=== PATIENT | female | born 2005 | race Two or more races ===

== ENCOUNTER 2025-03-02 12:18 | Outpatient (CLI) | payer OTHER | END 2025-03-02 12:27 | disposition home or self-care (01) | LOC: SONOGRAMA 12:18 | PROVIDERS: ATTEND Surgery | DX: D24.1 Benign neoplasm of right breast (principal); N60.11 Diffuse cystic mastopathy of right breast; N60.12 Diffuse cystic mastopathy of left breast ==

== ENCOUNTER 2025-03-16 05:27 | Day surgery (SDC) | payer OTHER ==
[2025-03-16] MEDS ORDERED: CEFAZOLIN SODIUM 1,000 MG VIAL ONE (07:05)
[2025-03-16] MEDS ORDERED: CHLORHEXIDINE GLUCONATE 120 ML BOTTLE TOP ONE (07:12)
== END 2025-03-16 15:20 | disposition home or self-care (01) ==
LOC: CIR.AMB 05:27
PROVIDERS: ATTEND Surgery
DX: D24.2 Benign neoplasm of left breast (principal); D48.62 Neoplasm of uncertain behavior of left breast

== ENCOUNTER 2025-03-27 14:43 | Emergency (ER) | payer OTHER ==
[~2025-03-27] VITALS: Ht 167.6 cm; Wt 54.4 kg
[2025-03-27] MEDS ORDERED: KETOROLAC TROMETHAMINE 60 MG VIAL IM ONE (15:16)
[2025-03-27] MEDS ORDERED: KETOROLAC TROMETHAMINE 60 MG VIAL IM STA (15:24)
[2025-03-27] MEDS ORDERED: 0.9 % SODIUM CHLORIDE 1,000 ML IV STA (15:24)
[2025-03-27 16:07] LABS: BASO % 0.8 % (0.1-1.2); EOS # 0.02 (0.04-0.54); EOS % 0.5 % (0.7-7.0); HEMATOCRIT 36.9 % (34.1-44.9); HEMOGLOBIN 12.8 g/dL (11.2-15.7); LYMPH # 1.33 (1.18-3.74); LYMPH % 34.7 % (19.3-53.1); MEAN CORPUSCULAR HEMOGLOBIN 28.1 pg (25.6-32.2); MONO # 0.31 (0.24-0.82); MONO % 8.1 % (4.7-12.5); NEUT # 2.13 (1.56-6.13); NEUT % 55.6 % (34.0-71.1); PLATELET COUNT 180 K/uL (163-369); RED BLOOD COUNT 4.55 M/uL (3.93-5.22); RED CELL DISTRIBUTION WIDTH 13.5 % (11.6-14.4)
[2025-03-27 17:29] LABS: ALBUMIN 3.7 gm/dL (3.4-5.0); ALKALINE PHOSPHATASE 76 U/L (50-136); ALT/SGPT 35 U/L (12-78); ANION GAP 11 (10.0-20.0); AST/SGOT 24 U/L (15-37); BILIRUBIN TOTAL 0.19 mg/dL (0.3-1.2); BLOOD UREA NITROGEN 8 mg/dL (7-18); BUN CREA RATIO 13 (7.0-25.0); CALCIUM 8.9 mg/dL (8.5-10.1); CARBON DIOXIDE 24 mEq/L (21-32); CHLORIDE 110 mmol/L (98-107); CREATININE SERUM 0.63 mg/dL (0.55-1.02); GFR 121.73; GLOBULINA 3.4 G/DL (2.4-3.5); GLUCOSE FASTING 121 mg/dL (65-100); OSMOLALITY SERUM 281 MOSM/KG (275-295); POTASSIUM 3.87 mEq/L (3.5-5.1); SODIUM 141 mmol/L (136-145); TOTAL PROTEIN 7.1 gm/dL (6.4-8.2)
[2025-03-27 18:06] LABS: HCG QUANTITATIVE < 1 mUI/mL (1-3)
== END 2025-03-27 18:35 | disposition home or self-care (01) ==
LOC: ER 14:43 → EMR PED 14:43
DX: N94.6 Dysmenorrhea, unspecified (principal); N80.8 Other endometriosis